=== PATIENT | female | born 1960 | race Caucasian/White ===

== ENCOUNTER → 2018-08-10 | Outpatient (CLI) | payer BC ==
--- NOTE | 2018-08-11 00:11 | PCVCIMAG ---
APPROVED REPORT Study performed: 08/10/2018 15:50:34 EXAM: Comprehensive 2D, Doppler, and color-flow Echocardiogram Patient Location: Echo lab Room #: 2Status: routine BSA: 1.99 HR: 86 bpmBP: 136/68 mmHg Rhythm: NSR Other Information Study Quality: Technically Difficult Risk Factors: Cardiac Risk Factors: HTN, DM Indications Murmur Hypertension/HDD 2D Dimensions IVSd: 6.81 (7-11mm)LVOT Diam: 21.05 (18-24mm) LVDd: 40.14 mm PWd: 7.40 (7-11mm)Ascending Ao: 29.93 (22-36mm) LVDs: 19.40 (25-40mm) Left Atrium: 34.26 (27-40mm) Aortic Root: 23.08 mm LV Single Plane 4CH: 58.50 % LV Single Plane 2CH: 58.28 % Biplane EF: 61.5 % Volumes Left Atrial Volume (Systole) Single Plane 4CH: 29.41 mLSingle Plane 2CH: 21.19 mL Biplane LA Volume: 27.00 mLLA ESV Index: 13.00 mL/m2 Aortic Valve AoV Peak Candido.: 1.66 m/s AO Peak Gr.: 11.07 mmHgLVOT Max P.53 mmHg LVOT Max V: 1.18 m/s PRABHAKAR Vmax: 2.46 cm2 Mitral Valve E/A Ratio: 0.6 MV Decel. Time: 160.96 ms MV E Max Candido.: 0.61 m/s MV A Candido.: 1.04 m/s IVRT: 79.58 ms Pulmonary Valve PV Peak Candido.: 1.36 m/sPV Peak Gr.: 7.42 mmHg Pulmonary Vein P Vein S: 0.73 m/sP Vein A: 0.38 m/s P Vein D: 0.38 m/sP Vein A Dur.: 124.6 msec P Vein S/D Ratio: 1.92 Tricuspid Valve TV Vmax: 0.64 m/s Left Ventricle The left ventricle is normal size. There is normal LV segmental wall motion. There is normal left ventricular wall thickness. Left ventricular systolic function is normal. There is a mild LV gradient seen by doppler at mid LV. The left ventricular ejection fraction is within the normal range. LVEF is 60-65%. Grade I - abnormal relaxation pattern. Right Ventricle The right ventricle is normal size. The right ventricular systolic function is normal. Atria The left atrium size is normal. Interatrial septum is intact without evidence of ASD or PFO. The right atrium size is normal. Aortic Valve Aortic valve is trileaflet. The aortic valve is normal in structureand function. No aortic regurgitation is present. There is no aortic valvular stenosis. Mitral Valve The mitral valve is normal in structure. There is no mitral valve regurgitation noted. No evidence of mitral valve stenosis. Tricuspid Valve The tricuspid valve is normal in structure. There is no tricuspid valve regurgitation noted. Pulmonic Valve The pulmonary valve is normal in structure. There is no pulmonic valvular regurgitation. Great Vessels The aortic root is normal in size. The ascending aorta is normal in size. IVC is normal in size and collapses >50% with inspiration. Pericardium There is no pericardial effusion. There is no pleural effusion. <Conclusion> The left ventricle is normal size. LVEF is 60-65%. Aortic valve is trileaflet. The aortic valve is normal in structureand function. The mitral valve is normal in structure. The tricuspid valve is normal in structure. The pulmonary valve is normal in structure. There is no pericardial effusion.
== END | disposition home or self-care (01) ==
LOC: PCVCIMAG 16:14
PROVIDERS: ATTEND Internal Medicine
DX: I10 Essential (primary) hypertension (principal); E11.9 Type 2 diabetes mellitus without complications; R01.1 Cardiac murmur, unspecified
CPT/HCPCS: 93306